=== PATIENT | male | born 1970 | race Two or more races ===

== ENCOUNTER 2023-08-09 10:30 | Outpatient (CLI) | payer OTHER | END 2023-08-09 10:40 | disposition home or self-care (01) | LOC: PPH VACUNA 10:30 | PROVIDERS: ATTEND Emergency Medicine Pediatric Emergency Medicine | DX: Z23 Encounter for immunization (principal) | CPT/HCPCS: 90686; G0008 ==

== ENCOUNTER → 2024-01-27 | Emergency (ER) | payer OTHER ==
[~2024-01-27] VITALS: Ht 180.3 cm; Wt 140.6 kg
[~2024-01-27] MED LIST: 0.9 % SODIUM CHLORIDE 1,000 ML IV SCH; FAMOTIDINE/PF 20 MG in 0.9 % SODIUM CHLORIDE 8 ML IV PUSH STA; KETOROLAC TROMETHAMINE 30 MG VIAL IV ONE; LEVSIN/SL0.125 MG SL; PIPERACILLIN/TAZOBACTAM SODIUM 3.375 GM VIAL IV ONE
[2024-01-27 11:51] LABS: HEMATOCRIT 45.1 % (39.0-48.0); HEMOGLOBIN 15.3 g/dL (13-16.00); MEAN CELL VOLUME 87.1 fL (80.0-100.00); MEAN CORPUSCULAR HEMOGLOBIN 29.6 pg (27.00-32.0); PLATELET COUNT 222 K/uL (150-450); RED BLOOD COUNT 5.18 M/uL (4.00-6.00); RED CELL DISTRIBUTION WIDTH 13.6 % (11.5-14.5)
[2024-01-27 12:23] LABS: ALBUMIN 3.5 gm/dL (3.4-5.0); BILIRUBIN TOTAL 0.54 mg/dL (0.3-1.2); CALCIUM 9.3 mg/dL (8.5-10.1); CREATININE SERUM 1.24 mg/dL (0.70-1.30); GFR 60.52; GLOBULINA 4.4 G/DL (2.4-3.5); POTASSIUM 4.1 mEq/L (3.5-5.1); TOTAL PROTEIN 7.9 gm/dL (6.4-8.2)
[2024-01-27 16:22] LABS: URINE BACTERIA 13.8 uL (0.0-1933); URINE EPITHELIAL CELLS 3.9 uL (0.0-38.8); URINE RBC 2.2 uL (0.0-20.8)
[2024-01-27 16:40] LABS: URINE WBC 1.5 uL (0.0-23.2)
[2024-01-27 16:41] LABS: URINE APPEARANCE CLEAR; URINE BILIRRUBIN NEGATIVE (NEGATIVE); URINE BLOOD NEGATIVE; URINE COLOR YELLOW; URINE GLUCOSE NEGATIVE (NEGATIVE)
[2024-01-27 16:42] LABS: URINE LEUKOCYTE NEGATIVE; URINE NITRATE NEGATIVE; URINE PROTEIN NEGATIVE (NEGATIVE); URINE UROBILINOGEN 0.2 E.U./dl
== END | disposition home or self-care (01) ==
LOC: ER 10:26
PROVIDERS: General Practice
DX: K52.89 Other specified noninfective gastroenteritis and colitis (principal)

== ENCOUNTER 2024-09-03 16:00 | Outpatient (CLI) | payer OTHER ==
[~2024-09-03 16:00] MED LIST changes: -0.9 % SODIUM CHLORIDE 1,000 ML IV SCH; -FAMOTIDINE/PF 20 MG in 0.9 % SODIUM CHLORIDE 8 ML IV PUSH STA; -KETOROLAC TROMETHAMINE 30 MG VIAL IV ONE; +PEPCID AC20 MG PO; -PIPERACILLIN/TAZOBACTAM SODIUM 3.375 GM VIAL IV ONE
== END 2024-09-03 16:10 | disposition home or self-care (01) ==
LOC: PPH VACUNA 16:00
PROVIDERS: ATTEND Emergency Medicine Pediatric Emergency Medicine
DX: Z23 Encounter for immunization (principal)

== ENCOUNTER 2024-12-04 13:49 | Outpatient (CLI) | payer OTHER | END 2024-12-04 13:51 | disposition home or self-care (01) | LOC: SONOGRAMA 13:49 | PROVIDERS: ATTEND Orthopaedic Surgery | DX: M65.811 Other synovitis and tenosynovitis, right shoulder (principal) ==

== ENCOUNTER 2024-12-22 08:29 | Outpatient (CLI) | payer OTHER | END 2024-12-22 08:32 | disposition home or self-care (01) | LOC: RAD 08:29 | PROVIDERS: ATTEND Orthopaedic Surgery Sports Medicine | DX: M75.51 Bursitis of right shoulder (principal) ==